=== PATIENT | female | born 1960 | race Caucasian/White ===

== ENCOUNTER → 2017-02-20 | Outpatient (CLI) | payer BC ==
--- NOTE | 2017-02-21 13:25 | MM ---
Reason for exam: screening (asymptomatic). Last mammogram was performed 1 year and 5 months ago. History: Patient is postmenopausal. Family history of breast cancer in paternal grandmother. Benign left US cyst aspiration of the left breast, January 17, 2008. Physical Findings: A clinical breast exam by your physician is recommended on an annual basis and results should be correlated with mammographic findings. MG 3D Screening Mammo W/Cad Bilateral CC and MLO view(s) were taken. Prior study comparison: October 05, 2015, bilateral MG screening mammo w CAD. December 30, 2013, bilateral digital screening mammo w/CAD. There are scattered fibroglandular densities. No significant changes when compared with prior studies. ASSESSMENT: Negative, BI-RAD 1 RECOMMENDATION: Routine screening mammogram of both breasts in 1 year.
== END | disposition home or self-care (01) ==
LOC: RADMAMWWP 08:58
PROVIDERS: ATTEND Family Medicine
DX: Z12.31 Encounter for screening mammogram for malignant neoplasm of breast (principal)
CPT/HCPCS: 77063; G0202

== ENCOUNTER → 2017-08-31 | Outpatient (CLI) | payer BC ==
--- NOTE | 2017-09-03 08:11 | USB ---
Reason for exam: clinical finding. History: Patient is postmenopausal. Family history of breast cancer in paternal grandmother. Benign left US cyst aspiration of the left breast, January 17, 2008. Indicated problem(s): lump or thickening in the left breast. Physical Findings: Nurse Summary: 1cm palpable lump, soft, movable (nurse rm). US Breast LT Left breast ultrasound includes all four quadrants, the retroareolar region and axilla. Finding demonstrates a 5 x 3 x 4mm oval, cystic lesion at 3 o'clock. These results were verbally communicated with the patient and result sheet given to the patient on 08/31/17. ASSESSMENT: Benign, BI-RAD 2 RECOMMENDATION: Return to routine screening mammogram schedule for both breasts. Back on schedule. Manage patient on a clinical basis.
== END | disposition home or self-care (01) ==
LOC: RADUSWWP 06:57
PROVIDERS: ATTEND Family Medicine
DX: N63.20 Unspecified lump in the left breast, unspecified quadrant (principal)

== ENCOUNTER → 2018-01-02 | Outpatient (CLI) | payer BC ==
--- NOTE | 2018-01-02 08:44 | US ---
EXAMINATION TYPE: US thyroid st tissue head/neck DATE OF EXAM: 01/02/2018 COMPARISON: NONE CLINICAL HISTORY: E04.9 Nontoxic goiter unspecified. Patient states physician thought her gland made me enlarged based off of neck fullness, no lab work, not on meds GLAND SIZE: Right Lobe: 5.0 x 1.6 x 0.9 cm Overall Parenchyma: homogenous Left Lobe: 5.0 x 1.4 x 0.9 cm Overall Parenchyma: homogeneous Isthmus Thickness: 0.2 cm NODULES RIGHT: # of nodules measured on right: 1 1. 0.3 X 0.2 x 0.2 cm cystic nodule at the mid pole with well-defined margins; present with microca lcifications. This nodule is wider than tall and shows intranodular vascularity. Prior size: HELP DESK INTERN imaging LEFT: # of nodules measured on left: 1 1. 0.4 X 0.3 x 0.5 cm cystic nodule at the mid pole with well-defined margins. This nodule is wide r than tall and shows intranodular vascularity. Prior size: HELP DESK INTERN imaging ISTHMUS: # of nodules measured in the isthmus: 0 Bilateral neck scanned, no evidence of lymphadenopathy. IMPRESSION: Subcentimeter thyroid nodules within an enlarged thyroid gland. Surveillance is recommended for these nodules as they are too small for fine needle aspiration.
== END | disposition home or self-care (01) ==
LOC: RADUSWWP 08:04
PROVIDERS: ATTEND Family Medicine
DX: E04.2 Nontoxic multinodular goiter (principal); E04.9 Nontoxic goiter, unspecified
CPT/HCPCS: 76536

== ENCOUNTER → 2018-02-21 | Outpatient (CLI) | payer BC ==
--- NOTE | 2018-02-21 13:52 | MM ---
Reason for exam: screening (asymptomatic). Last mammogram was performed 1 year ago. History: Patient is postmenopausal. Family history of breast cancer in paternal grandmother. Benign left US cyst aspiration of the left breast, January 17, 2008. Physical Findings: A clinical breast exam by your physician is recommended on an annual basis and results should be correlated with mammographic findings. MG 3D Screening Mammo W/Cad Bilateral CC and MLO view(s) were taken. Prior study comparison: February 20, 2017, bilateral MG 3d screening mammo w/cad. October 05, 2015, bilateral MG screening mammo w CAD. There are scattered fibroglandular densities. There is chronic nodularity in the left breast. There is no discrete abnormality. ASSESSMENT: Incomplete: need additional imaging evaluation, BI-RAD 0 RECOMMENDATION: Ultrasound of the left breast. (persistent focal pain and palpable) [facility] will attempt to contact patient to return for ultrasound.
== END | disposition home or self-care (01) ==
LOC: RADMAMWWP 08:16
PROVIDERS: ATTEND Family Medicine
DX: Z12.31 Encounter for screening mammogram for malignant neoplasm of breast (principal); E04.9 Nontoxic goiter, unspecified
CPT/HCPCS: 77063; 77067

== ENCOUNTER → 2018-02-28 | Outpatient (CLI) | payer BC ==
--- NOTE | 2018-02-28 10:35 | USB ---
Reason for exam: additional evaluation requested from abnormal screening. History: Patient is postmenopausal. Family history of breast cancer in paternal grandmother. Benign left US cyst aspiration of the left breast, January 17, 2008. Physical Findings: Nurse did not find any significant physical abnormalities on exam. US Breast Workup Limited LT Left breast ultrasound demonstrates no cystic or solid lesion seen. Scanned 12-3 o'clock. These results were verbally communicated with the patient and result sheet given to the patient on 02/28/18. ASSESSMENT: Negative, BI-RAD 1 RECOMMENDATION: Return to routine screening mammogram schedule for both breasts. Manage on a clinical basis with regard to any suspicious palpable abnormalities.
== END | disposition home or self-care (01) ==
LOC: RADUSWWP 09:32
PROVIDERS: ATTEND Family Medicine
DX: R92.8 Other abnormal and inconclusive findings on diagnostic imaging of breast (principal)

== ENCOUNTER → 2018-03-06 | Outpatient (CLI) | payer BC ==
[2018-03-06 09:27] LABS: Basophils # (A) 0.1 k/uL (0-0.2); Basophils % (A) 1 %; Eosinophils # (A) 0.6 k/uL (0-0.7); Eosinophils % (A) 8 %; HCT 41.4 % (34.0-46.0); HGB 14.5 gm/dL (11.4-16.0); Lymphocytes # (A) 1.6 k/uL (1.0-4.8); Lymphocytes % (A) 23 %; MCHC 35.1 g/dL (31.0-37.0); MCV 85.5 fL (80.0-100.0); Mean Platelet Volume 8.3; Monocytes # (A) 0.4 k/uL (0-1.0); Monocytes % (A) 6 %; Neutrophils # (A) 4.1 k/uL (1.3-7.7); Neutrophils % (A) 60 %; Platelet Count 225 k/uL (150-450); RBC 4.84 m/uL (3.80-5.40); WBC 6.9 k/uL (3.8-10.6)
[2018-03-06 09:52] LABS: ALT 31 U/L (9-52); AST 22 U/L (14-36); Albumin 4.3 g/dL (3.5-5.0); Alkaline Phosphatase 93 U/L (38-126); Anion Gap 13 mmol/L; Blood Urea Nitrogen 13 mg/dL (7-17); Calcium 9.6 mg/dL (8.4-10.2); Carbon Dioxide 28 mmol/L (22-30); Chloride 102 mmol/L (98-107); Cholesterol 185 mg/dL (<200); Glucose 100 mg/dL (74-99); HDL Cholesterol 55 mg/dL (40-60); LDL Cholesterol,Calculated 100 mg/dL (0-99); Potassium 3.9 mmol/L (3.5-5.1); Sodium 143 mmol/L (137-145); Total Bilirubin 0.4 mg/dL (0.2-1.3); Total Protein 7.1 g/dL (6.3-8.2); Triglycerides 152 mg/dL (<150)
== END | disposition home or self-care (01) ==
LOC: LABWHC1 08:47
PROVIDERS: ATTEND Family Medicine
DX: E78.5 Hyperlipidemia, unspecified (principal); I10 Essential (primary) hypertension
CPT/HCPCS: 36415; 80053; 80061; 84443; 85025

== ENCOUNTER → 2018-07-30 | Outpatient (CLI) | payer BC, OTHER ==
[2018-07-30 20:54] LABS: Gliadin AB IgA, Unit 0.3 U/mL
== END | disposition home or self-care (01) ==
LOC: LABWHC1 12:12
PROVIDERS: ATTEND Internal Medicine Gastroenterology
DX: K58.9 Irritable bowel syndrome, unspecified (principal)
CPT/HCPCS: 36415; 83516

== ENCOUNTER 2018-08-09 12:06 | Day surgery (SDC) | payer BC ==
[2018-07-15 11:07] VITALS: BMI 25.4
[~2018-08-09 12:06] MED LIST: LACTATED RINGERS 1,000 ML IV SCH; LIDOCAINE 1% 20 ML VIAL (10MG/ML) FOR IV START INTRADERMA PRN
[2018-08-09 13:31] VITALS: RESP 16; TEMP 99.3
[2018-08-09] MEDS ORDERED: LIDOCAINE 1% INJ 10MG/ML (20 ML MDV) ONE (14:34)
[2018-08-09] MEDS ORDERED: PROPOFOL 10 MG/ML 20 ML VIAL IV ONE (14:34)
--- NOTE | 2018-08-09 15:14 | P.PCN ---
Date of Procedure: 08/09/18 Procedure(s) Performed: BRIEF HISTORY: Patient is a 58-year-old, pleasant, white female, scheduled for an upper endoscopy as a part of the evaluation of intermittent dysphagia to solids for the last 6 months duration.. PROCEDURE PERFORMED: Esophagogastroduodenoscop with biopsy and dilation PREOPERATIVE DIAGNOSIS: Intermittent dysphagia to solids. IV sedation per anesthesia. PROCEDURE: After informed consent was obtained, the patient was brought into the endoscopy unit. IV sedation was administered by Anesthesia under continuous monitoring. Initially the Olympus GIF-140 video endoscope was inserted into the mouth. Esophagus intubated without any difficulty. It was gradually advanced into the stomach and duodenum and carefully examined. The bulb and the second part of the duodenum appeared normal. The scope at this time was withdrawn to the stomach, adequately insufflated with air, and upon careful examination, mucosa of the antrum, status and biopsies were done from this area. The body, cardia and the fundus appeared normal. The scope was then withdrawn into the esophagus. The GE junction was located at 39 cm from the incisors. There was a distal esophageal Schatzki's ring which was dilated using 12-15 mm TTS balloon for 30 seconds in sequential fashion. The mucosal folds in the distal esophagus appeared thickened and hence multiple biopsies were done from this area to rule out eosinophilic esophagitis. The esophagus appeared normal. There were no erosions or ulcerations seen and the patient tolerated the procedure well. IMPRESSION: 1. Distal esophageal Schatzki's ring status post balloon dilation using 12-15 mm TTS balloon as described above. 2. Small hiatal Hernia 3. Thickened distal esophageal folds status post biopsy to rule out eosinophilic esophagitis. RECOMMENDATIONS: The findings of this examination were discussed with the patient as well as a family. She was advised to follow with the biopsy results. She'll be seen in office in 6 weeks. She'll be given a trial of Prilosec 20 mg daily to be taken half hour before breakfast and follow antireflux measures.
[2018-08-09 15:24] VITALS: PULSE 73
[2018-08-09 15:47] VITALS: BP 138/85
== END 2018-08-09 15:57 | disposition home or self-care (01) ==
LOC: ORWHC2ENDO 12:06
PROVIDERS: ATTEND Internal Medicine Gastroenterology
DX: K29.50 Unspecified chronic gastritis without bleeding (principal); K22.2 Esophageal obstruction; K44.9 Diaphragmatic hernia without obstruction or gangrene; K21.0 Gastro-esophageal reflux disease with esophagitis; I10 Essential (primary) hypertension; E78.5 Hyperlipidemia, unspecified; Z79.1 Long term (current) use of non-steroidal anti-inflammatories (NSAID); Z79.899 Other long term (current) drug therapy
CPT/HCPCS: 88305; 43239; 43249; J2001; J2704; C1726

== ENCOUNTER → 2018-12-03 | Outpatient (CLI) | payer BC ==
[2018-12-03 11:03] LABS: Basophils # (A) 0.1 k/uL (0-0.2); Basophils % (A) 1 %; Eosinophils # (A) 0.2 k/uL (0-0.7); Eosinophils % (A) 3 %; HGB 15.8 gm/dL (11.4-16.0); Lymphocytes # (A) 1.8 k/uL (1.0-4.8); Lymphocytes % (A) 26 %; MCH 30.8 pg (25.0-35.0); MCHC 35.8 g/dL (31.0-37.0); MCV 85.9 fL (80.0-100.0); Mean Platelet Volume 7.6; Monocytes # (A) 0.3 k/uL (0-1.0); Monocytes % (A) 4 %; Neutrophils # (A) 4.4 k/uL (1.3-7.7); Neutrophils % (A) 64 %; Platelet Count 241 k/uL (150-450); RBC 5.12 m/uL (3.80-5.40); RDW 13.9 % (11.5-15.5); WBC 6.9 k/uL (3.8-10.6)
[2018-12-03 16:40] LABS: Albumin 4.9 g/dL (3.80-4.90); Albumin/Globulin Ratio 2.23 (1.20-2.10); Anion Gap 10.7 mmol/L (4.00-12.00); Calcium 9.5 mg/dL (8.7-10.3); Carbon Dioxide 24.3 mmol/L (21.6-31.8); Globulin 2.2 g/dL (1.6-3.3); Potassium 3.3 mmol/L (3.5-5.5); Total Bilirubin 0.6 mg/dL (0.3-1.2); Total Protein 7.1 g/dL (6.2-8.2)
[2018-12-04 14:37] LABS: C-ANCA <1:20 Titer (<1:20); P-ANCA <1:20 Titer (<1:20)
== END | disposition home or self-care (01) ==
LOC: LABWHC1 09:54
PROVIDERS: ATTEND Family Medicine
DX: H20.03 Secondary infectious iridocyclitis (principal)
CPT/HCPCS: 36415; 80053; 82595; 83516; 85025; 86160; 86255; 86618

== ENCOUNTER → 2019-01-13 | Outpatient (CLI) | payer BC | END | disposition home or self-care (01) | LOC: LABWHC1 10:24 | PROVIDERS: ATTEND Ophthalmology Retina Specialist | DX: H20.019 Primary iridocyclitis, unspecified eye (principal) | CPT/HCPCS: 36415 ==

== ENCOUNTER → 2019-03-28 | Outpatient (CLI) | payer BC ==
[2019-03-28 10:56] LABS: Basophils # (A) 0.1 k/uL (0-0.2); Basophils % (A) 1 %; Eosinophils # (A) 0.5 k/uL (0-0.7); Eosinophils % (A) 8 %; HCT 40.1 % (34.0-46.0); HGB 13.6 gm/dL (11.4-16.0); Lymphocytes # (A) 1.7 k/uL (1.0-4.8); Lymphocytes % (A) 25 %; MCH 29.7 pg (25.0-35.0); MCHC 33.9 g/dL (31.0-37.0); MCV 87.6 fL (80.0-100.0); Mean Platelet Volume 7.7; Monocytes # (A) 0.3 k/uL (0-1.0); Monocytes % (A) 5 %; Neutrophils # (A) 3.9 k/uL (1.3-7.7); Neutrophils % (A) 59 %; Platelet Count 277 k/uL (150-450); RBC 4.57 m/uL (3.80-5.40); RDW 15.2 % (11.5-15.5); WBC 6.6 k/uL (3.8-10.6)
[2019-03-28 12:20] LABS: Erythrocyte Sedimentation Rate 13 mm/hr (0-20)
[2019-03-28 16:24] LABS: ALT 35 U/L (8-44); AST 26 U/L (13-35); C Reactive Protein <0.4 mg/dL (0.0-0.8); Calcium 9.5 mg/dL (8.7-10.3); Carbon Dioxide 28.4 mmol/L (21.6-31.8); Chloride 105 mmol/L (96-109); Potassium 3.4 mmol/L (3.5-5.5); Sodium 142 mmol/L (135-145)
== END | disposition home or self-care (01) ==
LOC: LABWHC1 10:10
PROVIDERS: ATTEND Internal Medicine Rheumatology
DX: M25.50 Pain in unspecified joint (principal); M06.4 Inflammatory polyarthropathy; Z79.899 Other long term (current) drug therapy
CPT/HCPCS: 36415; 80051; 82040; 82310; 82565; 84450; 84460; 84520; 85025; 85652; 86140

== ENCOUNTER → 2019-10-14 | Outpatient (CLI) | payer BC ==
[2019-10-14 17:24] LABS: Basophils # (A) 0.1 k/uL (0-0.2); Basophils % (A) 1 %; Eosinophils # (A) 0.2 k/uL (0-0.7); Eosinophils % (A) 3 %; HCT 38.8 % (34.0-46.0); HGB 13.7 gm/dL (11.4-16.0); Lymphocytes # (A) 1.5 k/uL (1.0-4.8); Lymphocytes % (A) 24 %; MCH 31.8 pg (25.0-35.0); MCHC 35.4 g/dL (31.0-37.0); MCV 89.9 fL (80.0-100.0); Mean Platelet Volume 6.6; Monocytes # (A) 0.3 k/uL (0-1.0); Monocytes % (A) 6 %; Neutrophils # (A) 3.9 k/uL (1.3-7.7); Neutrophils % (A) 65 %; Platelet Count 252 k/uL (150-450); RBC 4.32 m/uL (3.80-5.40); RDW 13.4 % (11.5-15.5)
[2019-10-14 19:04] LABS: Erythrocyte Sedimentation Rate 10 mm/hr (0-20)
[2019-10-15 00:11] LABS: ALT 36 U/L (8-44); AST 28 U/L (13-35); African American GFR (CKD) 117.3 (60.0-200.0); C Reactive Protein <0.4 mg/dL (0.0-0.8); Calcium 9.3 mg/dL (8.7-10.3); Carbon Dioxide 28.3 mmol/L (21.6-31.8); Chloride 102 mmol/L (96-109); Potassium 3.3 mmol/L (3.5-5.5); Sodium 138 mmol/L (135-145)
== END | disposition home or self-care (01) ==
LOC: LABWHC1 16:25
PROVIDERS: ATTEND Internal Medicine Rheumatology
DX: M06.4 Inflammatory polyarthropathy (principal); M25.50 Pain in unspecified joint; Z79.899 Other long term (current) drug therapy
CPT/HCPCS: 36415; 80051; 82040; 82310; 82565; 84450; 84460; 84520; 85025; 85652; 86140

== ENCOUNTER → 2019-12-05 | Outpatient (CLI) | payer BC ==
--- NOTE | 2019-12-05 14:21 | US ---
EXAMINATION TYPE: US thyroid st tissue head/neck DATE OF EXAM: 12/05/2019 COMPARISON: Thyroid ultrasound January 02, 2018 CLINICAL HISTORY: E04.1 SINGLE THYROID NODULE. Follow up, hoarseness GLAND SIZE: Right Lobe: 4.9 X 0.9 X 1.1 cm Overall Parenchyma: homogenous Left Lobe: 4.8 X 1.0 X 1.3 cm Overall Parenchyma: homogeneous Isthmus Thickness: 0.2 cm NODULES RIGHT: # of nodules measured on right: 1 1. 0.4 X 0.3 x 0.4 cm hypoechoic mixed nodule at the upper pole with well-defined margins; . This nodule is wider than tall and shows intranodular vascularity. Prior size: 0.3 x 0.2 x 0.3 cm LEFT: # of nodules measured on left: 1 1. 0.5 X 0.3 x 0.5 cm hypoechoic mixed nodule at the mid pole with well-defined margins; . This no dule is wider than tall and shows intranodular vascularity. Prior size: 0.4 x 0.3 x 0.5 cm ISTHMUS: # of nodules measured in the isthmus: 0 Bilateral neck scanned, no evidence of lymphadenopathy. Homogeneous normal-sized thyroid with stable small bilateral single nodules. IMPRESSION: As above, no new or enlarging nodules identified.
== END | disposition home or self-care (01) ==
LOC: RADUSWWP 13:34
PROVIDERS: ATTEND Family Medicine
DX: E04.1 Nontoxic single thyroid nodule (principal)
CPT/HCPCS: 76536

== ENCOUNTER 2020-09-17 09:25 | Day surgery (SDC) | payer BC, MEDICARE ==
[2020-09-15 14:14] VITALS: BMI 24.1
[~2020-09-17 09:25] MED LIST changes: +LIDOCAINE 1% (10MG/ML) FOR IV START INTRADERMA PRN; -LIDOCAINE 1% 20 ML VIAL (10MG/ML) FOR IV START INTRADERMA PRN
[2020-09-17 10:27] VITALS: TEMP 98.4
[2020-09-17] MEDS ORDERED: LIDOCAINE 1% INJ 10MG/ML (20 ML MDV) ONE (11:28)
[2020-09-17] MEDS ORDERED: PROPOFOL 10 MG/ML 20 ML VIAL IV ONE (11:28)
--- NOTE | 2020-09-17 11:56 | P.PCN ---
Date of Procedure: 09/17/20 Procedure(s) Performed: BRIEF HISTORY: Patient is a 60-year-old pleasant female scheduled for an elective colonoscopy as a part of evaluation of prior history of colon polyps. Last coloscopy was 5 years ago. PROCEDURE PERFORMED: Colonoscopy with biopsy. PREOPERATIVE DIAGNOSIS: History of colon polyps. IV sedation per Anesthesia. PROCEDURE: After informed consent was obtained, the patient, was brought into the endoscopy unit. IV sedation was administered by Anesthesia under continuous monitoring. Digital rectal examination was normal. Initially the Olympus CF-160 flexible video colonoscope was then inserted in the rectum, gradually advanced into the cecum without any difficulty. Careful examination was performed as the scope was gradually being withdrawn. Ileocecal valve and the appendiceal orifice were visualized and appeared normal. Prep was excellent. Mucosa of the cecum, ascending colon, appeared normal. In the hepatic flexure there was a 3 mm polyp removed by cold biopsy. The colon there was another 3 mm sessile polyp removed by cold biopsy. Rest of the transverse colon, descending colon, sigmoid colon, and rectum appeared normal. Retroflexion was performed in the rectum and no lesions were seen. The patient tolerated the procedure well. IMPRESSION: 3 mm hepatic flexure polyp status post removal by cold biopsy 3 mm transverse colon polyp status post removal by cold biopsy Rest of the colon appeared RECOMMENDATIONS: Findings of this examination were discussed with the patient as well as his family. She was advised to follow with the biopsy results. If the biopsy shows an adenoma she can have a repeat colonoscopy in 5 years
[2020-09-17 12:46] VITALS: BP 134/83; PULSE 82; RESP 16
== END 2020-09-17 12:43 | disposition home or self-care (01) ==
LOC: ORWHC2ENDO 09:25
PROVIDERS: ATTEND Internal Medicine Gastroenterology
DX: Z12.11 Encounter for screening for malignant neoplasm of colon (principal); K63.5 Polyp of colon; D12.3 Benign neoplasm of transverse colon; Z86.010 Personal history of colon polyps; I10 Essential (primary) hypertension; E78.5 Hyperlipidemia, unspecified; Z98.890 Other specified postprocedural states; Z79.899 Other long term (current) drug therapy
CPT/HCPCS: 88305; 45380; J2001; J2704

== ENCOUNTER → 2021-06-09 | Outpatient (CLI) | payer MEDICARE ==
--- NOTE | 2021-06-14 09:23 | MM ---
Reason for exam: screening (asymptomatic). Last mammogram was performed 2 years and 1 month ago. History: Patient is postmenopausal. Family history of breast cancer in paternal grandmother. Benign left US cyst aspiration of the left breast, January 17, 2008. Physical Findings: A clinical breast exam by your physician is recommended on an annual basis and results should be correlated with mammographic findings. MG 3D Screening Mammo W/Cad Bilateral CC and MLO view(s) were taken. Prior study comparison: May 09, 2019, mammogram, performed at [facility]. There are scattered fibroglandular densities. ASSESSMENT: Negative, BI-RAD 1 RECOMMENDATION: Routine screening mammogram of both breasts in 1 year.
== END | disposition home or self-care (01) ==
LOC: RADMAMWWP 10:35
PROVIDERS: ATTEND Family Medicine
DX: Z12.31 Encounter for screening mammogram for malignant neoplasm of breast (principal); Z80.3 Family history of malignant neoplasm of breast; Z78.0 Asymptomatic menopausal state
CPT/HCPCS: 77063; 77067

== ENCOUNTER → 2022-02-23 | Outpatient (CLI) | payer MEDICARE ==
--- NOTE | 2022-02-24 07:57 | ECHOF ---
Referral Reason:I10 HTN MEASUREMENTS -------- HEIGHT: 154.9 cm WEIGHT: 59.9 kg BP: RVIDd: 2.5 cm (< 3.3) IVSd: 0.9 cm (0.6 - 1.1) LVIDd: 4.3 cm (3.9 - 5.3) LVPWd: 1.0 cm (0.6 - 1.1) IVSs: 1.8 cm LVIDs: 1.5 cm LVPWs: 1.4 cm LAESV Index (A-L): 13.21 ml/m Ao Diam: 3.1 cm (2.0 - 3.7) AV Cusp: 1.7 cm (1.5 - 2.6) LA Diam: 2.5 cm (2.7 - 3.8) MV EXCURSION: 13.536 mm (> 18.000) MV EF SLOPE: 132 mm/s (70 - 150) EPSS: 0.7 cm MV E Shawn: 0.62 m/s MV DecT: 123 ms MV A Shawn: 0.91 m/s MV E/A Ratio: 0.68 RAP: 5.00 mmHg RVSP: 19.52 mmHg FINDINGS -------- This was a technically good study. The left ventricular size is normal. Left ventricular wall thickness is normal. Overall left vent ricular systolic function is normal with, an EF between 55 - 60 %. The diastolic filling pattern is normal for the age of the patient 8.88. The right ventricle is normal in size. The left atrial size is normal. Normal LA size by volume 22+/-6 ml/m2. The right atrial size is normal. The aortic valve is trileaflet and appears structurally normal. The mitral valve is normal. There is trace mitral regurgitation. The tricuspid valve appears structurally normal. Trace tricuspid regurgitation present. Right tania tricular systolic pressure is normal at < 35 mmHg. There is no pulmonic regurgitation present. The aortic root size is normal. Normal inferior vena cava with normal inspiratory collapse consistent with estimated right atrial pre ssure of 5 mmHg. There is no pericardial effusion. CONCLUSIONS -------- 1. The left ventricular size is normal. 2. Left ventricular wall thickness is normal. 3. Overall left ventricular systolic function is normal with, an EF between 55 - 60 %. 4. The diastolic filling pattern is normal for the age of the patient 8.88 5. There is trace mitral regurgitation. 6. Trace tricuspid regurgitation present. 7. There is no pericardial effusion. SNOW RANGER: Ariana Winslow RDCS
== END | disposition home or self-care (01) ==
LOC: RADECHMAIN 16:35
PROVIDERS: ATTEND Family Medicine
DX: I08.1 Rheumatic disorders of both mitral and tricuspid valves (principal); I10 Essential (primary) hypertension
CPT/HCPCS: 93306

== ENCOUNTER → 2022-09-12 | Outpatient (CLI) | payer MEDICARE ==
--- NOTE | 2022-09-13 08:52 | MM ---
Reason for Exam: Screening (asymptomatic). Last mammogram was performed 1 year(s) and 3 month(s) ago. Patient History: Menarche at age 15. First Full-Term at age 28. Postmenopausal. 01/17/2008, Benign Cyst Aspiration on the left side. Paternal grandmother had breast cancer. Risk Values: Camila 5 year model risk: 1.6%. NCI Lifetime model risk: 8.1%. Prior Study Comparison: 10/05/2015 Bilateral Screening Mammogram, [facility]. 02/20/2017 Bilateral Screening Mammogram, [facility]. 02/21/2018 Bilateral Screening Mammogram, [facility]. 05/09/2019 Screening Mammogram, [facility]. 06/09/2021 Bilateral Screening Mammogram, [facility]. Tissue Density: There are scattered fibroglandular densities. Findings: Analyzed By CAD. There is no suspicious group of microcalcifications or new suspicious mass in either breast. Chronic nodularity in the left breast. No significant change from prior exams. Overall Assessment: Benign, BI-RAD 2 Management: Screening Mammogram of both breasts in 1 year. A clinical breast exam by your physician is recommended on an annual basis and results should be correlated with mammographic findings. Electronically signed and approved by: Herve Jimenez D.O.
--- NOTE | 2022-09-13 08:52 | MM ---
Reason for Exam: Screening (asymptomatic). Last mammogram was performed 1 year(s) and 3 month(s) ago. Patient History: Menarche at age 15. First Full-Term at age 28. Postmenopausal. 01/17/2008, Benign Cyst Aspiration on the left side. Paternal grandmother had breast cancer. Risk Values: Camila 5 year model risk: 1.6%. NCI Lifetime model risk: 8.1%. Prior Study Comparison: 10/05/2015 Bilateral Screening Mammogram, [facility]. 02/20/2017 Bilateral Screening Mammogram, [facility]. 02/21/2018 Bilateral Screening Mammogram, [facility]. 05/09/2019 Screening Mammogram, [facility]. 06/09/2021 Bilateral Screening Mammogram, [facility]. Tissue Density: There are scattered fibroglandular densities. Findings: Analyzed By CAD. There is no suspicious group of microcalcifications or new suspicious mass in either breast. Chronic nodularity in the left breast. No significant change from prior exams. Overall Assessment: Benign, BI-RAD 2 Management: Screening Mammogram of both breasts in 1 year. A clinical breast exam by your physician is recommended on an annual basis and results should be correlated with mammographic findings. Electronically signed and approved by: Herve Jimenez D.O.
== END | disposition home or self-care (01) ==
LOC: RADMAMWWP 07:41
PROVIDERS: ATTEND Family Medicine
DX: Z12.31 Encounter for screening mammogram for malignant neoplasm of breast (principal); Z78.0 Asymptomatic menopausal state; Z80.3 Family history of malignant neoplasm of breast
CPT/HCPCS: 77063; 77067

== ENCOUNTER → 2022-09-26 | Outpatient (CLI) | payer MEDICARE ==
[2022-09-26 14:44] VITALS: BP 139/90; PULSE 100; RESP 17; TEMP 97.9
--- NOTE | 2022-09-26 15:50 | P.HPOB ---
History of Present Illness H&P Date: 09/26/22 Chief Complaint: The patient is here for her routine gynecologic exam. This is a 70-year-old with an LMP of 2012. The patient is here to reestablish with this office. Her last pelvic exam was in 2014. She has been experiencing some intermittent brief pelvic pains over the past 2 months. They seem to be dull and not very severe. She rates the pain at 2 out of 10 when she feels it. They can typically last for 15 minutes or less. Most days she does not experience pain. She denies any current pain at this moment. She has not had the pain for about 2 weeks. She cannot think of any activities or conditions it seemed to be related to when she experiences the pain. They tend to be quite random. She is otherwise without complaints and denies any postmenopausal bleeding. Review of Systems She denies respiratory or cardiac problems. GI: Occasional constipation. : She denies UTI symptoms such as dysuria or urinary urgency. She denies fever. 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 She did have a 3.1 cm uterine fibroid by ultrasound in 2013. History of Any Multi-Drug Resistant Organisms: None Reported Past Surgical History: Breast Surgery, Orthopedic Surgery Additional Past Surgical History / Comment(s): Bilateral ACL repairs, Colonoscopy 2020, Cataracts, Lipoma removed from neck & ankle. 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 - Past Family History Mother Family Medical History: Cancer Additional Family Medical History / Comment(s): Lung Cancer. Father Family Medical History: No Reported History Additional Family Medical History / Comment(s): in a plane crash. A paternal grandmother had breast cancer. Medications and Allergies Home Medications Medication Instructions Recorded Confirmed Type hydroCHLOROthiazide [Hydrodiuril] 25 mg PO HS 08/17/16 09/26/22 History Rosuvastatin [Crestor] 10 mg PO HS 08/07/18 09/26/22 History Cholecalciferol [Vitamin D3 (25 1,000 unit PO DAILY 09/15/20 09/26/22 History Mcg = 1000 Iu)] Multivitamin Elixir 1 dose PO DAILY 09/15/20 09/26/22 History Allergies Allergy/AdvReac Type Severity Reaction Status Date / Time No Known Allergies Allergy Verified 09/26/22 14:38 Exam Vital Signs Temp Pulse Resp BP Pulse Ox 09/26/22 14:39 97.9 F 100 17 139/90 95 Intake and Output 09/26/22 09/26/22 09/26/22 06:59 14:59 22:59 Other: Weight 62.596 kg Height 5 foot 1 inch, weight 138 pounds, BMI 26.1. This is a well-developed well-nourished white female who is alert and oriented times 3 in no acute distress. HEENT: Within normal limits. NECK: Supple without mass or thyromegaly. CHEST AND LUNGS: Clear to auscultation. HEART: Regular rate and rhythm. BREASTS: Are without mass or discharge. AXILLARY EXAM: Negative for adenopathy. BACK: Negative for CVA tenderness. ABDOMEN: Soft, nontender, without palpable masses. PELVIC EXAM: Normal external genitalia with mild atrophy. Cervix and vagina appear normal with mild atrophy. There is no unusual discharge. There is no evidence of prolapse. The uterus is midposition and nontender. The body of the uterus is nongravid size, however, there is a solid right adnexal mass measuring approximately 4 cm. It is difficult to determine if this is uterine or ovarian in nature. The mass is slightly posterior to the body of the uterus. It is somewhat fixed and nontender. RECTAL EXAM: The vaginal exam also confirms a right adnexal mass as described above. There are no rectal masses. Stool is negative for occult blood. EXTREMITIES: Nontender. IMPRESSION: 1. 62-year-old menopausal female with a right adnexal mass on exam measuring approximate 4 cm and seems solid. Differential diagnosis will include uterine fibroid and possible ovarian neoplasm. 2. Intermittent pelvic pains felt on both sides, but more common on the right side. This may or may not be related to the right adnexal mass palpated on exam today. PLAN: 1. Pap smear cotest was performed. 2. Self breast awareness was discussed with the patient. We have also discussed symptoms associated with inflammatory breast cancer. 3. Screening mammogram was done on 09/12/2022 and was benign. This will be repeated after 1 year. 4. Pelvic ultrasound as recommended and the order slip was given to the patient for this. 5. Osteoporosis prevention was discussed. I have stressed the importance of adequate calcium, vitamin D and regular exercise. Recommended amounts of calcium and vitamin D were also discussed. Bone density testing is also recommended and the order slip was given to the patient for this. 6. Additional workup and recommendations will depend on the pelvic ultrasound findings. 7. She was advised to return in one year for her annual well woman exam and as needed.
== END ==
LOC: WWCWWP 14:32
PROVIDERS: ATTEND Obstetrics & Gynecology
DX: Z01.419 Encounter for gynecological examination (general) (routine) without abnormal findings (principal)

== ENCOUNTER → 2022-10-02 | Outpatient (CLI) | payer MEDICARE ==
--- NOTE | 2022-10-02 16:18 | US ---
EXAMINATION TYPE: US pelvis complete transvag DATE OF EXAM: 10/02/2022 COMPARISON: US 01/27/2014. CLINICAL HISTORY: R10.2 PELVIC AND PERINEAL PAIN. Pt states [place] mass within right adnexa on exam ination TECHNIQUE: Transvaginal (TV) and Transabdominal (TA) . Transabdominal sonographic images of the pel vis were acquired. Transvaginal sonographic images were medically necessary to better assess the fol lowing anatomy: Ovaries Date of LMP: 2012 EXAM MEASUREMENTS: Uterus: 8.0 x 4.7 x 5.3 cm Endometrial Stripe: 0.4 cm Left Ovary: 1.7 x 1.6 x 1.2 cm 1. Uterus: Anteverted Heterogeneous, multiple intramural fibroids (up to 4), within uterus- larges t midline indenting endometrium= 2.5 x 2.3 x 2.4 cm. 2. Endometrium: wnl 3. Right Ovary: Normal ovarian tissue not identified within right adnexa- large, vascular, solid mas s within right adnexa appears separate from uterus= 6.8 x 5.0 x 6.0 cm. 4. Left Ovary: wnl 5. Bilateral Adnexa: Small amount of fluid right adnexa 6. Posterior cul-de-sac: wnl IMPRESSION: Fibroid changes of the uterus with right adnexal heterogenous 6.8 cm mass. This appears to be separat e from the uterus. Etiologies include epithelial ovarian neoplasm versus subserosal fibroid versus ot her etiologies. Further evaluation with pelvic MRI and ticket scheduler oncologic surgical consultation is recomme nded.
--- NOTE | 2022-10-03 18:41 | P.PN ---
Progress Note - Text Progress Note Date: 10/03/22 OUTPATIENT FOLLOW-UP NOTE TEST(S)/RESULTS: Test results from 09/26/2022 include negative Pap smear and negative high-risk HPV testing. Pelvic ultrasound on 10/02/2022 shows a fibroid uterus plus a right adnexal mass measuring 6.8 cm which seems to be separate from the uterus. METHOD OF NOTIFICATION: The patient was notified by phone. PATIENT COMMENTS: DIAGNOSIS: Negative Pap smear cotest. Pelvic ultrasound showing a fibroid uterus and right adnexal mass. DISCUSSION: The differential diagnosis regarding the right adnexal mass will include a subserosal uterine fibroid or pedunculated fibroid as well as an ovarian neoplasm. I will review the images with the radiologist and we will make a decision on the next step. This might be proceeding with an MRI of the pelvis or possible gynecologic oncology referral. PLAN: As above.
--- NOTE | 2022-10-04 10:53 | P.PN ---
Progress Note - Text Progress Note Date: 10/04/22 I have reviewed the patient's 10/02/[address] Abdullahi, the radiologist. He feels that there is a pretty good chance that the right adnexal mass is ovarian, but still cannot be sure that it is not a fibroid. I have discussed this case with Dr. Ariana Painting, a gynecologic oncologist at the [facility]. She has suggested proceeding with the MRI of the pelvis and to get tumor markers including CA-125, CEA, and CA 19-9. If this testing is suspicious for the possibility of an ovarian neoplasm, she will be referred to a gynecologic oncologist to be seen. I have discussed this with the patient who is in agreement with this plan. We have discussed possible gynecologic oncologists that she could see including Dr. Blaine Nava at the [facility] and Dr. Ariana Painting or one of her colleagues at the [facility]. We will await the above testing to determine if this referral should be made. Impression: Right pelvic mass which is solid measuring 6.8 cm by ultrasound. Differential diagnosis will include solid ovarian neoplasm as well as uterine fibroid. Plan: MRI of the pelvis without and with contrast will be scheduled. The patient will come in to have blood testing which will include CA-125, CEA, and CA 199. Possible referral to a gynecologic oncologist if the mass seems to be ovarian in nature.
== END | disposition home or self-care (01) ==
LOC: RADUSWWP 15:14
PROVIDERS: ATTEND Obstetrics & Gynecology
DX: R10.2 Pelvic and perineal pain (principal); R68.89 Other general symptoms and signs
CPT/HCPCS: 76830; 76856

== ENCOUNTER → 2022-10-04 | Outpatient (CLI) | payer MEDICARE ==
[2022-10-05 01:31] LABS: Cancer Antigen 19-9 15.7 U/mL (0.0-34.9)
== END | disposition home or self-care (01) ==
LOC: LABWHC1 14:20
PROVIDERS: ATTEND Obstetrics & Gynecology
DX: D49.519 Neoplasm of unspecified behavior of unspecified kidney (principal); R19.09 Other intra-abdominal and pelvic swelling, mass and lump
CPT/HCPCS: 36415; 82378; 86301; 86304

== ENCOUNTER → 2022-10-13 | Outpatient (CLI) | payer MEDICARE ==
--- NOTE | 2022-10-16 12:14 | MR ---
EXAMINATION TYPE: MR pelvis wo/w con DATE OF EXAM: 10/13/2022 COMPARISON: Pelvic ultrasound 10/02/2022 CLINICAL INDICATION:Female, 62 years old with history of D25.9,D49.5,R19.09; TECHNIQUE: Triplane multisequence imaging was performed of the pelvis. IV Contrast: 6 cc Gadavist FINDINGS: Reproductive: Vagina: Unremarkable. Uterus: The uterus is anteverted in position. Uterus measures 6.9 x 4.3 x 4.8 cm. Multiple fibroids a re present some of which abut the endometrium and place the endometrium measuring up to 2.4 cm in the posterior fundal region there is a subserosal exophytic fibroid posteriorly measuring up to 2.2 cm. The uterine fibroids all demonstrate enhancement to some degree. Multiple smaller anterior intramural fibroids also present. The endometrium and junctional zone are within normal limits. Ovaries: Not definitively visualized and may be atrophic. Right adnexal heterogenous signal mass appe ars to be separate from the uterus and appears to be arising off the right ovary measuring up to 6.9 x 5.1 x 5.8 cm. There is felt to be separation of this mass uterus when viewed on multiplanar imaging There is mild postcontrast enhancement of this mass. The gonadal vessels appear to be entering this region. The bilateral ovaries are not definitively visualized. Bladder: Unremarkable. Bowel: Unremarkable as visualized. Peritoneum: There is free fluid within the pelvis. No evidence of adenopathy. Vasculature: Unremarkable. Abdominal wall/soft tissues: Unremarkable. Musculoskeletal: Bone marrow signal is within normal signal intensity. IMPRESSION: 1. Right pelvic mass felt to be separate from the uterus and bowel and likely arising from the right ovary. Primary ovarian neoplasm is suggested until proven otherwise. Surgical consultation recommend ed. No evidence of adenopathy at this time. 2. Uterine fibroids some of which abut the endometrium. 3. Nonspecific free fluid in the pelvis.
--- NOTE | 2022-10-17 09:18 | P.PN ---
Progress Note - Text Progress Note Date: 10/17/22 OUTPATIENT FOLLOW-UP NOTE TEST(S)/RESULTS: MRI of the pelvis done on 10/13/2022 shows a right pelvic mass which is heterogeneous and measures 6.9 cm. METHOD OF NOTIFICATION: The patient was notified by phone. PATIENT COMMENTS: The patient has an appointment to see Dr. Blaine Nava, the gynecologic oncologist on 10/20/2022 at his [place] office. DIAGNOSIS: Right pelvic mass. Differential diagnosis will include right ovarian neoplasm which could be benign or malignant, as well as possible pedunculated fibroid. DISCUSSION: We have had a long discussion regarding various possible types of pelvic masses. All of her questions were answered. PLAN: She will see Dr. Blaine Naav, the gynecologic oncologist on 10/20/2022.
== END | disposition home or self-care (01) ==
LOC: RADMRIMAIN 18:14
PROVIDERS: ATTEND Obstetrics & Gynecology
DX: D25.9 Leiomyoma of uterus, unspecified (principal); D49.59 Neoplasm of unspecified behavior of other genitourinary organ; R19.09 Other intra-abdominal and pelvic swelling, mass and lump
CPT/HCPCS: 72197; A9585

== ENCOUNTER → 2022-11-01 | Outpatient (CLI) | payer MEDICARE ==
--- NOTE | 2022-11-01 11:20 | XR ---
EXAMINATION TYPE: XR chest 2V DATE OF EXAM: 11/01/2022 COMPARISON: NONE HISTORY: Right adnexal mass. Presurgical study. TECHNIQUE: Frontal and lateral views of the chest are obtained. FINDINGS: There is no focal air space opacity, pleural effusion, or pneumothorax seen. The cardiac silhouette size is within normal limits. The osseous structures are intact. IMPRESSION: No acute cardiopulmonary process.
--- NOTE | 2022-11-01 13:04 | CT ---
EXAMINATION TYPE: CT abdomen pelvis w con DATE OF EXAM: 11/01/2022 HISTORY: Right adnexal mass. CT DLP: 494mGycm Automated Exposure Control for Dose Reduction was Utilized. CONTRAST: CT scan of the abdomen and pelvis is performed without oral but with IV Contrast, patient injected wi th 70 mL of Isovue 300. COMPARISON: Prior pelvic ultrasound October 02, 2022. Prior pelvic MRI October 13, 2022 FINDINGS: LUNG BASES: No significant abnormality is appreciated. LIVER/GB: No significant abnormality is appreciated. PANCREAS: No significant abnormality is seen. SPLEEN: No significant abnormality is seen. ADRENALS: No significant abnormality is seen. KIDNEYS: No significant abnormality is seen. BOWEL: No significant abnormality is seen. UTERUS/ADNEXA: Redemonstration of anteverted uterus. Some bulkiness or fullness along the posterior f undus corresponds to known small fibroids seen best on most recent pelvic MRI. Persistent small moder ate free fluid in the right pelvic cul-de-sac axial image 68. Persistent posterior right pelvic heter ogeneous mass measuring 7.2 x 6.0 cm axial image 68 x 5.7 cm craniocaudal dimension coronal image 53 presumed right ovarian in origin, slightly more hypodense relative to the uterus and adjacent skeleta l muscles. LYMPH NODES: No greater than 1cm abdominal or pelvic lymph nodes are appreciated. OSSEOUS STRUCTURES: No significant abnormality is seen. OTHER: No significant additional abnormality is seen. IMPRESSION: Solid well-defined there is 7.0 cm right pelvic mass presumed ovarian solid neoplasm is r edemonstrated. No suspicious adenopathy or metastatic disease seen.
== END | disposition home or self-care (01) ==
LOC: RADCTMAIN 10:50
PROVIDERS: ATTEND Obstetrics & Gynecology
DX: N83.201 Unspecified ovarian cyst, right side (principal); R19.00 Intra-abdominal and pelvic swelling, mass and lump, unspecified site
CPT/HCPCS: 71046; 74177; Q9967

== ENCOUNTER → 2024-01-22 | Outpatient (CLI) | payer MEDICARE ==
[2024-01-22 13:00] VITALS: BP 163/95; PULSE 94; RESP 17; TEMP 97.9
--- NOTE | 2024-01-22 13:39 | P.HPOB ---
History of Present Illness H&P Date: 01/22/24 Chief Complaint: The patient is here for her routine gynecologic exam and ma mmogram. This is a 63-year-old with an LMP of 2012. The patient is status post BSO for an ovarian fibroma on 12/11/2022. This was benign. The patient states that about 1 month ago she had a right pelvic discomfort that was very faint and was a pulsating sensation that was brief. She rated the discomfort at 1 out of 10. About 1 week ago she noticed something similar on the left side pills again a pulsating sensation and fairly faint. She denies any current discomfort at this time. She states the discomfort however, resembling the discomfort that led to finding the ovarian mass one half years ago. She is otherwise without complaints and denies any postmenopausal bleeding. Review of Systems The patient has lost 2 pounds over the last year. She denies respiratory, cardiac, or G.I. problems. 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 She did have a 3.1 cm uterine fibroid by ultrasound in 2013. Benign right ovarian fibroma removed in 2022. History of Any Multi-Drug Resistant Organisms: None Reported Past Surgical History: Breast Surgery, Orthopedic Surgery Additional Past Surgical History / Comment(s): Bilateral ACL repairs, Colonoscopy 2020, Cataracts, Lipoma removed from neck & ankle. Breast aspiration. BSO 2022 Past Anesthesia/Blood Transfusion Reactions: No Reported Reaction Past Psychological History: No Psychological Hx Reported (PHQ-2 questionaire was given and she scores 0. 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 - Past Family History Mother Family Medical History: Cancer Additional Family Medical History / Comment(s): Lung Cancer. Father Family Medical History: No Reported History Additional Family Medical History / Comment(s): in a plane crash. A paternal grandmother had breast cancer. Medications and Allergies Home Medications Medication Instructions Recorded Confirmed Type hydroCHLOROthiazide [Hydrodiuril] 25 mg PO HS 08/17/16 01/22/24 History Rosuvastatin [Crestor] 10 mg PO HS 08/07/18 01/22/24 History Cholecalciferol [Vitamin D3 (25 1,000 unit PO DAILY 09/15/20 01/22/24 History Mcg = 1000 Iu)] Multivitamin Elixir 1 dose PO DAILY 09/15/20 01/22/24 History Allergies Allergy/AdvReac Type Severity Reaction Status Date / Time No Known Allergies Allergy Verified 01/22/24 12:50 Exam Vital Signs Temp Pulse Resp BP Pulse Ox 01/22/24 12:51 97.9 F 94 17 163/95 97 Blood pressure 163/95, height 5 foot 1 inch, weight 136 pounds, BMI 26, temperature 97.9, pulse 94, pulse oximeter 97% This is a well-developed well-nourished white female who is alert and oriented times 3 in no acute distress. HEENT: Within normal limits. NECK: Supple without mass or thyromegaly. CHEST AND LUNGS: Clear to auscultation. HEART: Regular rate and rhythm. BREASTS: Are without mass or discharge. AXILLARY EXAM: Negative for adenopathy. BACK: Negative for CVA tenderness. ABDOMEN: Soft, nontender, without palpable masses. PELVIC EXAM: Normal external genitalia with mild atrophy. Cervix and vagina appear normal mild atrophy. There is no cervical motion tenderness. There is no unusual discharge. There is no evidence of prolapse. The uterus is midposition, nongravid size and nontender. There are no palpable adnexal masses or tenderness. RECTAL EXAM: Rectovaginal exam is negative for mass or tenderness and is negative for occult blood. EXTREMITIES: Nontender. IMPRESSION: 1. 63-year-old menopausal female status post BSO for benign reasons, with normal gynecologic exam. 2. History of BSO on 12/11/2022 for a benign ovarian fibroma. 3. Intermittent faint bilateral pulsating pelvic discomfort during the past month which resembled the symptoms she had prior to removing the ovarian fib jackie. No significant physical findings on exam today. Differential diagnosis will include vascular pulsation which may be more noticeable with hypertension, pelvic adhesions, uterine fibroid which may push against vascular structures, and less likely, mass from an ovarian remnant syndrome. 4. Elevated blood pressure with history of chronic hypertension. PLAN: 1. Pap smear was deferred since she had a negative Pap smear cotest on 09/26/2022. 2. Self breast awareness was discussed with the patient. We have also discussed symptoms associated with inflammatory breast cancer. 3. Screening mammogram will be done today. 4. Osteoporosis prevention was discussed. I have stressed the importance of adequate calcium, vitamin D and regular exercise. Recommended amounts of calcium and vitamin D were also discussed. 5. Pelvic ultrasound was recommended and the order slip was given to the patient for this. 6. We have discussed her elevated blood pressure. I have recommended that she check her own blood pressure at home on a regular basis since she does have a blood pressure cuff. She will follow-up with Dr. Nixon for blood pressure elevations. 7. She was advised to return in one year for her annual well woman exam.
--- NOTE | 2024-01-23 21:29 | MM ---
Reason for Exam: Screening (asymptomatic). Last mammogram was performed 1 year(s) and 4 month(s) ago. Patient History: Menarche at age 15. First Full-Term at age 28. Postmenopausal. 01/17/2008, Benign Cyst Aspiration on the left side. Paternal grandmother had breast cancer. Risk Values: Camila 5 year model risk: 1.6%. NCI Lifetime model risk: 7.9%. Prior Study Comparison: 05/09/2019 Screening Mammogram, [facility]. 06/09/2021 Bilateral Screening Mammogram, [facility]. 09/12/2022 Bilateral MG 3D screening mammo w/cad, [facility]. Tissue Density: There are scattered fibroglandular densities. Findings: Analyzed By CAD. The pattern is symmetrical. Pattern is stable No suspicious groups of microcalcifications, spiculated or lobular masses, architectural distortion or other secondary signs of malignancy are mammographically apparent. Overall Assessment: Benign, BI-RAD 2 Management: Screening Mammogram of both breasts in 1 year. A negative mammogram report should not preclude additional follow up of suspicious palpable abnormalities. Patient should continue monthly self breast exam. A clinical breast exam by your physician is recommended on an annual basis and results should be correlated with mammographic findings. Electronically signed and approved by: Horace Sanches D.O. Radiologis
== END ==
LOC: WWCWWP 12:31
PROVIDERS: ATTEND Obstetrics & Gynecology
DX: Z12.31 Encounter for screening mammogram for malignant neoplasm of breast (principal); E78.5 Hyperlipidemia, unspecified; I10 Essential (primary) hypertension; R10.2 Pelvic and perineal pain; R92.323 Mammographic fibroglandular density, bilateral breasts; Z80.3 Family history of malignant neoplasm of breast; Z90.722 Acquired absence of ovaries, bilateral; Z78.0 Asymptomatic menopausal state; Z86.018 Personal history of other benign neoplasm; Z79.899 Other long term (current) drug therapy; Z98.890 Other specified postprocedural states
CPT/HCPCS: 77063; 77067

== ENCOUNTER → 2025-02-02 | Outpatient (CLI) | payer MEDICARE ==
--- NOTE | 2025-02-03 08:44 | BD ---
EXAMINATION TYPE: Axial Bone Density DATE OF EXAM: 02/02/2025 CLINICAL HISTORY: 64 years old Female. ICD-10 CODE: Z78.0 ASYMPTOMATIC MENOPAUSAL STATE , Additional History: Height: 61" Weight: 135lbs FRAX RISK QUESTIONS: Alcohol (3 or more units per day): No Family History (Parent hip fracture): No Glucocorticoids (More than 3mos): No (Ex: prednisone, prednisolone, methylprednisolone, dexamethasone, and hydrocortisone). History of Fracture in Adulthood: No Secondary Osteoporosis: 1. Type 1 Diabetes: No 2. Hyperthyroidism: No 3. Menopause before 45: No 4. Malnutrition: No 5. Chronic liver disease: No Rheumatoid Arthritis: No Current Tobacco Use: No RISK FACTORS HISTORY OF: Hip Fracture (Right/Left): No Spine Fracture: No History of Wrist Fracture: No Surgery to Spine/Hip(right/left)/Wrist (right/left): No MEDICATIONS: Thyroid Medications: No Osteoporosis Medications: No EXAM MEASUREMENTS: Bone mineral densitometry was performed using the [employer] System. Bone mineral density as measured about the Lumbar spine is: ----- L1-L4(G/cm2): 0.970 T Score Values are as follows: ----- L1: -1.7 ----- L2: -1.8 ----- L3: -2.1 ----- L4: -1.5 ----- L1-L4: -1.7 Z Score Values are as follows: ----- L1: -0.1 ----- L2: -0.2 ----- L3: -0.6 ----- L4: 0.0 ----- L1-L4: -0.2 Baseline @MPH Bone mineral density about the R hip (g/cm2): 1.026 Bone mineral density about the L hip (g/cm2): 0.995 T Score values are as follows: -----R Neck: -0.2 -----L Neck: -0.8 -----R Total: 0.1 -----L Total: -0.1 Z Score values are as follows: -----R Neck: 1.2 -----L Neck: 0.6 -----R Total: 1.3 -----L Total: 1.1 Baseline @MPH FRAX%s: The graph provided illustrates a 7.5% chance for a major osteoporotic fx and a 0.4% chance fo r the hips probability for fx in 10 years time. IMPRESSION: Osteopenia (T Score between -2.5 and -1). There is slightly increased risk of fracture and the patient may be considered for treatment. Re-Screen 2-5 years. NOTE: T-SCORE=SD OF THE YOUNG ADULT MEAN. [facility], , 02/03/2025 8:42 AM
--- NOTE | 2025-02-03 10:15 | MM ---
Reason for Exam: Screening (asymptomatic). Last mammogram was performed 1 year(s) and 1 month(s) ago. Patient History: Menarche at age 15. First Full-Term at age 28. Postmenopausal. 01/17/2008, Benign Cyst Aspiration on the left side. Paternal grandmother had breast cancer. Risk Values: Camila 5 year model risk: 1.7%. NCI Lifetime model risk: 7.7%. Prior Study Comparison: 06/09/2021 Bilateral Screening Mammogram, [facility]. 09/12/2022 Bilateral MG 3D screening mammo w/cad, [facility]. 01/22/2024 Bilateral MG 3D screening mammo w/cad, [facility]. Tissue Density: The breasts are heterogeneously dense, which may obscure small masses. Findings: Analyzed By CAD. There is no suspicious group of microcalcifications in either breast. Asymmetric density retroareolar right breast. Additional views are recommended. Overall Assessment: Incomplete: need additional imaging evaluation, BI-RAD 0 Management: Diagnostic Mammogram of the right breast. . Patient should continue monthly self-breast exams. A clinical breast exam by your physician is recommended on an annual basis. This exam should not preclude additional follow-up of suspicious palpable abnormalities. Note on Camila scores and lifetime risk: 1. A Camila score greater than 3% is considered moderate risk. If this is the case, consider specialist referral to assess eligibility for a risk reducing agent. 2. If overall lifetime risk for the development of breast cancer is 20% or higher, the patient may qualify for future screening with alternating mammogram and breast MRI. [facility], , 02/03/2025 10:12 AM. Electronically signed and approved by: Tonio Salcido M.D. Radiologis
== END | disposition home or self-care (01) ==
LOC: RADMAMWWP 14:53
PROVIDERS: ATTEND Family Medicine
DX: Z12.31 Encounter for screening mammogram for malignant neoplasm of breast (principal); R92.333 Mammographic heterogeneous density, bilateral breasts; M85.89 Other specified disorders of bone density and structure, multiple sites; Z78.0 Asymptomatic menopausal state; Z80.3 Family history of malignant neoplasm of breast
CPT/HCPCS: 77063; 77067; 77080

== ENCOUNTER → 2025-02-06 | Outpatient (CLI) | payer MEDICARE ==
--- NOTE | 2025-02-06 13:13 | MM ---
Reason for Exam: Additional evaluation requested from abnormal screening. Last screening mammogram was performed less than 1 month ago. Patient History: Menarche at age 15. First Full-Term at age 28. Postmenopausal. 01/17/2008, Benign Cyst Aspiration on the left side. Paternal grandmother had breast cancer. Risk Values: Camila 5 year model risk: 1.7%. NCI Lifetime model risk: 7.7%. Tissue Density: Right: The breasts are heterogeneously dense, which may obscure small masses. Findings: Analyzed By CAD. No persistent asymmetric density or mass. No skin thickening seen. Overall Assessment: Negative, BI-RAD 1 Management: Screening Mammogram of both breasts in 1 year. . Results were given to the patient verbally at the time of exam. Patient should continue monthly self-breast exams. A clinical breast exam by your physician is recommended on an annual basis. This exam should not preclude additional follow-up of suspicious palpable abnormalities. Note on Camila scores and lifetime risk: 1. A Camila score greater than 3% is considered moderate risk. If this is the case, consider specialist referral to assess eligibility for a risk reducing agent. 2. If overall lifetime risk for the development of breast cancer is 20% or higher, the patient may qualify for future screening with alternating mammogram and breast MRI. [facility], , 02/06/2025 1:10 PM. Electronically signed and approved by: Tonio Salcido M.D. Radiologis
== END | disposition home or self-care (01) ==
LOC: RADMAMWWP 12:40
PROVIDERS: ATTEND Family Medicine
DX: R92.8 Other abnormal and inconclusive findings on diagnostic imaging of breast (principal); R92.331 Mammographic heterogeneous density, right breast; Z78.0 Asymptomatic menopausal state; Z80.3 Family history of malignant neoplasm of breast
CPT/HCPCS: 77061; 77065

== ENCOUNTER → 2025-02-13 | Outpatient (CLI) | payer MEDICARE ==
[2025-02-13 15:06] LABS: Basophils # (A) 0.08 X 10*3/uL (0.00-0.10); Basophils % (A) 1.2 %; Eosinophils # (A) 0.43 X 10*3/uL (0.04-0.35); Eosinophils % (A) 6.6 %; HCT 40.4 % (37.2-46.3); HGB 13.8 g/dL (12.0-15.0); Lymphocytes # (A) 1.72 X 10*3/uL (0.90-5.00); Lymphocytes % (A) 26.3 %; MCH 29.7 pg (27.0-32.0); MCHC 34.2 g/dL (32.0-37.0); MCV 86.9 FL (80.0-97.0); Mean Platelet Volume 11.1 FL (9.5-12.2); Monocytes # (A) 0.39 X 10*3/uL (0.20-1.00); NRBC Per 100 WBC 0 X 10*3/uL (0.00-0.01); Neutrophils # (A) 3.88 X 10*3/uL (1.80-7.70); Neutrophils % (A) 59.3 %; Platelet Count 245 X 10*3/uL (140-440); RBC 4.65 X 10*6/uL (4.10-5.20); RDW 12.9 % (11.5-14.5); WBC 6.54 X 10*3/uL (4.50-10.00)
[2025-02-13 15:17] LABS: ALT 24 U/L (8-44); AST 20 U/L (13-35); Albumin 4.2 g/dL (3.8-4.9); Albumin/Globulin Ratio 1.83 Ratio (1.60-3.17); Alkaline Phosphatase 90 U/L (41-126); BUN/Creat Ratio 15.33 Ratio (12.00-20.00); Blood Urea Nitrogen 9.2 mg/dL (9.0-27.0); Calcium 9.1 mg/dL (8.7-10.3); Carbon Dioxide 23.5 mmol/L (21.6-31.8); Chloride 108 mmol/L (96-109); Chol/HDL Ratio 4.31 Ratio; Globulin 2.3 g/dL (1.6-3.3); Glucose 96 mg/dL (70-110); LDL Cholesterol,Calculated 117.9 mg/dL (0.0-131.0); Potassium 4.4 mmol/L (3.5-5.5); Sodium 140 mmol/L (135-145); Total Bilirubin 0.4 mg/dL (0.3-1.2); Total Protein 6.5 g/dL (6.2-8.2)
== END | disposition home or self-care (01) ==
LOC: LABWHC1 09:05
PROVIDERS: ATTEND Family Medicine
DX: I10 Essential (primary) hypertension (principal); E78.5 Hyperlipidemia, unspecified
CPT/HCPCS: 36415; 80053; 80061; 84443; 85025

== ENCOUNTER 2025-05-27 09:01 | Day surgery (SDC) | payer MEDICARE ==
[2025-05-25 11:44] VITALS: BMI 24.5
[2025-05-27 09:19] VITALS: TEMP 97.4
[2025-05-27] MEDS: IV FLUID CONTINUATION 1,000 ML IV ONE (09:19)
[2025-05-27] MEDS: LACTATED RINGERS 1,000 ML IV SCH (09:21)
[2025-05-27] MEDS ORDERED: PROPOFOL 10 MG/ML 20 ML VIAL IV ONE (10:12)
--- NOTE | 2025-05-27 10:35 | P.PCN ---
Date of Procedure: 05/27/25 Procedure(s) Performed: BRIEF HISTORY: Patient is a 65-year-old pleasant white female scheduled for an elective colonoscopy as a part of screening for prior history of colon polyps and change in bowel habits. Her last colonoscopy was about 5 years ago and was noted to have an adenoma. PROCEDURE PERFORMED: Colonoscopy with snare polypectomy. PREOPERATIVE DIAGNOSIS: Change in bowel habits and screening for history of colon polyp. IV sedation per Anesthesia. PROCEDURE: After informed consent was obtained, the patient, was brought into the endoscopy unit. IV sedation was administered by Anesthesia under continuous monitoring. Digital rectal examination was normal. Initially the Olympus CF-160 flexible video colonoscope was then inserted in the rectum, gradually advanced into the cecum without any difficulty. Careful examination was performed as the scope was gradually being withdrawn. Ileocecal valve and the appendiceal orifice were visualized and appeared normal. Prep was excellent. Mucosa of the cecum, ascending colon, transverse colon appeared normal. The descending colon there was a 5 mm sessile polyp removed by cold snare polypectomy. Rest of the, descending colon, sigmoid colon, and rectum appeared normal. Retroflexion was performed in the rectum and no lesions were seen. The patient tolerated the procedure well. IMPRESSION: 5 mm descending colon polyp status post cold snare polypectomy Rest of the colon appeared normal RECOMMENDATIONS: Findings of this examination were discussed with the patient as well as her family. She was advised to follow with the biopsy results. If the biopsy reveals adenoma she can have repeat colonoscopy in 5 years..
[2025-05-27 10:46] VITALS: PULSE 88
[2025-05-27 10:51] VITALS: BP 160/94; RESP 19
== END 2025-05-27 11:17 | disposition home or self-care (01) ==
LOC: ORWHC2ENDO 09:01
PROVIDERS: ATTEND Internal Medicine Gastroenterology
DX: Z12.11 Encounter for screening for malignant neoplasm of colon (principal); D12.4 Benign neoplasm of descending colon; I10 Essential (primary) hypertension; E78.5 Hyperlipidemia, unspecified; Z96.651 Presence of right artificial knee joint; Z96.652 Presence of left artificial knee joint; Z79.899 Other long term (current) drug therapy
CPT/HCPCS: 88305; 45385; J2704